=== PATIENT | male | born 1970 | race Two or more races ===

== ENCOUNTER 2020-05-25 13:50 | Outpatient (CLI) | payer MEDICARE, OTHER ==
[~2020-05-25 13:50] MED LIST: BACL10TA PO; IMIP25TA6 PO; TOLT4CAP PO
== END 2020-05-25 23:59 | disposition home or self-care (01) ==
LOC: WOU 13:50
PROVIDERS: ATTEND Surgery
DX: B07.0 Plantar wart (principal); R53.2 Functional quadriplegia; N39.41 Urge incontinence; Z72.0 Tobacco use
CPT/HCPCS: G0463

== ENCOUNTER 2020-09-24 12:45 | Outpatient (CLI) | payer MEDICARE, OTHER | END 2020-09-24 23:59 | disposition home or self-care (01) | LOC: WOU 12:45 | PROVIDERS: ATTEND Surgery | DX: B07.0 Plantar wart (principal); G82.20 Paraplegia, unspecified; N39.41 Urge incontinence; Z72.0 Tobacco use | CPT/HCPCS: G0463 ==

== ENCOUNTER 2020-10-08 09:45 | Outpatient (CLI) | payer MEDICARE, OTHER | END 2020-10-08 23:59 | disposition home or self-care (01) | LOC: WOU 09:45 | PROVIDERS: ATTEND Podiatrist Foot & Ankle Surgery | DX: L89.513 Pressure ulcer of right ankle, stage 3 (principal); N39.41 Urge incontinence; Z72.0 Tobacco use; L84 Corns and callosities; Z96.643 Presence of artificial hip joint, bilateral; G82.20 Paraplegia, unspecified; T14.90XS Injury, unspecified, sequela; Y09 Assault by unspecified means | CPT/HCPCS: 11042 ==

== ENCOUNTER 2022-11-17 13:00 | Outpatient (CLI) | payer MEDICARE, OTHER | END 2022-11-17 23:59 | disposition home or self-care (01) | LOC: WOU 13:00 | PROVIDERS: ATTEND Surgery | DX: L98.9 Disorder of the skin and subcutaneous tissue, unspecified (principal); G82.20 Paraplegia, unspecified; M62.50 Muscle wasting and atrophy, not elsewhere classified, unspecified site; B35.1 Tinea unguium | CPT/HCPCS: G0463 ==